=== PATIENT | female | born 1965 | race Caucasian/White ===

== ENCOUNTER 2018-01-04 07:39 | Emergency (ER) | payer BC ==
[2018-01-04 07:59] VITALS: BP 123/83
--- NOTE | 2018-01-04 08:35 | UC ---
Adriane Jimenes Tenzin, scribed for Ag Lepe MD on 01/04/18 at 0814 . Eye Complaint HPI - HPI Summary HPI Summary: Pt is a 52 years old Female presenting to the with complaints of discharge and crusting in her eye after waking up this morning. She reports having cold like symptoms such as cough, ear pain, subjective feverish and sinus and chest congestion for a week. She denies wheezing and pain in her ear currently. She didn't report any aggravating or alleviating factors. - History of Current Complaint Stated Complaint: EYE ISSUE Time Seen by Provider: 01/04/18 07:53 Hx Obtained From: Patient Onset/Duration: Lasting Days - cold symptoms for a week. Timing: Intermittent Episode Lasting - for a week. Severity Initially: Mild Severity Currently: Mild Pain Intensity: 1 Pain Scale Used: 0-10 Numeric Location of Injury: Sclera Aggravating Factor(s): Nothing Alleviating Factor(s): Nothing Associated Signs And Symptoms: Positive: Fever - subjective - Allergies/Home Medications Allergies/Adverse Reactions: Allergies Allergy/AdvReac Type Severity Reaction Status Date / Time clarithromycin [From Biaxin] Allergy Nausea And Verified 01/04/18 07:50 Vomiting gold sodium thiomalate Allergy Hives Verified 01/04/18 07:50 grass pollen Allergy Itching Verified 01/04/18 07:50 house dust Allergy Itching Verified 01/04/18 07:50 MS Penicillins [Penicillins] Allergy Hives Verified 07/15/16 12:31 Penicillins Allergy Hives Verified 01/04/18 07:50 Sulfa (Sulfonamide Allergy Nausea And Verified 01/04/18 07:50 Antibiotics) Vomiting tree and shrub pollen Allergy Itching Verified 01/04/18 07:50 Home Medications: Home Medications Cetirizine* [ZyrTEC 10 MG TAB*] 10 mg PO DAILY PRN 01/04/18 [History Confirmed 01/04/18] Levothyroxine TAB* [Synthroid TAB*] 50 mcg PO DAILY 01/04/18 [History Confirmed 01/04/18] PMH/Surg Hx/FS Hx/Imm Hx - Additional Past Medical History Additional PMH: PMHx: Thyroid disease, Cardia arrhythmia, Asthma. Endocrine History: Thyroid Disease Cardiovascular History: Other - Cardia Arrhythmia Other Cardiovascular History: . Respiratory History: Asthma - Surgical History Surgical History: None - Family History Known Family History: Positive: Other Family History: Pt denies any relevant family history. - Social History Alcohol Use: Weekly Alcohol Amount: wine with meals Substance Use Type: None Smoking Status (MU): Never Smoked Tobacco Review of Systems Constitutional: Fever - subjective Skin: Negative Eyes: Drainage ENT: Ear Ache, Sinus Congestion Respiratory: Cough Cardiovascular: Negative Gastrointestinal: Negative Genitourinary: Negative Motor: Negative Neurovascular: Negative Musculoskeletal: Negative Neurological: Negative Psychological: Negative All Other Systems Reviewed And Are Negative: Yes - Comments Additional Review of Systems Comments: Positive: ear pain, subjective fever, cough, sinus congestion, eye discharge. Physical Exam - Summary Physical Exam Summary: General: well-appearing, no pain distress Skin: warm, color reflects adequate perfusion, dry Head: normal Eyes: EOMI, SHERRI, sclera injection to the medium aspect of the eye. ENT: normal Neck: supple, nontender Respiratory: CTA, breath sounds present Cardiovascular: RRR Abdomen: soft, nontender Bowel: present Musculoskeletal: normal, strength/ROM intact Neurological: sensory/motor intact, A&O x3 Psychological: affect/mood appropriate Triage Information Reviewed: Yes Vital Signs: Initial Vital Signs Temp 98.5 F 01/04/18 07:51 Pulse 66 01/04/18 07:51 Resp 18 01/04/18 07:51 BP 123/83 01/04/18 07:51 Pulse Ox 100 01/04/18 07:51 Vital Signs Reviewed: Yes Eye Complaint Course/Dx - Course Course Of Treatment: DISCUSSED VIRAL VS BACTERIAL INFECTION. DISCUSSED ABX TREATMENT. THE PATIENT PREFERS TO START ABX AT THIS TIME. F/U PMD; RECHECK SOONER IF WORSE. - Differential Dx/Diagnosis Provider Diagnoses: CONJUNCTIVITIS RT EYE. URI Discharge - Sign-Out/Discharge Documenting (check all that apply): Discharge/Admit/Transfer - Discharge Plan Condition: Stable Disposition: HOME Prescriptions: Azithromyxin LOIUE (NF) [Z-Louie (Zithromax) 250 mg tabs #6] 2 tab PO .TODAY, THEN 1 DAILY #6 tab Tobramycin 0.3% OPHTH.LUCAS* 1 drop RIGHT EYE Q4H #1 btl Patient Education Materials: Upper Respiratory Infection (ED), Conjunctivitis ( ED) Referrals: Carmen Silva MD [Primary Care Provider] - Additional Instructions: FOLLOW UP WITH YOUR DOCTOR. GET RECHECKED FOR ANY WORSENING OF YOUR CONDITION OR QUESTIONS OR CONCERNS. - Billing Disposition and Condition Condition: STABLE Disposition: Home The documentation as recorded by the Adriane diaz Tenzin accurately reflects the service I personally performed and the decisions made by me, Ag Lepe MD.
== END 2018-01-04 08:16 | disposition home or self-care (01) ==
LOC: UCEAST 07:39
DX: H10.31 Unspecified acute conjunctivitis, right eye (principal); J06.9 Acute upper respiratory infection, unspecified; E07.9 Disorder of thyroid, unspecified; I49.9 Cardiac arrhythmia, unspecified; J45.909 Unspecified asthma, uncomplicated; Z88.1 Allergy status to other antibiotic agents; Z88.0 Allergy status to penicillin; Z88.2 Allergy status to sulfonamides
CPT/HCPCS: 99212; G0463